=== PATIENT | male | born 1945 | race Two or more races ===

== ENCOUNTER 2018-11-18 16:29 | Emergency (ER) | payer OTHER ==
[~2018-11-18] VITALS: Ht 177.8 cm; Wt 84.8 kg
[~2018-11-18 16:29] MED LIST: AMBIEN10 MG; ATIVAN1 MG; CELEXA20 MG
== END 2018-11-19 11:40 | disposition home or self-care (01) ==
LOC: ER 16:29 → CPU-OBS 16:32 → ER 11-19 11:40
DX: N13.2 Hydronephrosis with renal and ureteral calculous obstruction (principal); R10.11 Right upper quadrant pain; R07.89 Other chest pain

== ENCOUNTER 2019-09-25 19:37 | Emergency (ER) | payer OTHER ==
[~2019-09-25] VITALS: Ht 177.8 cm; Wt 85.3 kg
== END 2019-09-25 22:58 | disposition home or self-care (01) ==
LOC: ER 19:37 → CPU-OBS 22:55 → ER 22:55
DX: R55 Syncope and collapse (principal)

== ENCOUNTER 2021-12-01 08:00 | Outpatient (CLI) | payer OTHER | END 2021-12-01 08:30 | disposition home or self-care (01) | LOC: PPH VACUNA 08:00 | PROVIDERS: ATTEND Emergency Medicine Pediatric Emergency Medicine | DX: Z23 Encounter for immunization (principal) ==